=== PATIENT | male | born 1950 | race Caucasian/White ===

== ENCOUNTER → 2017-06-21 | Outpatient (CLI) | payer MEDICARE, OTHER | LOC: PLD 10:34 → LAB SHORT 10:34 | DX: D22.5 Melanocytic nevi of trunk (principal) | CPT/HCPCS: 88305 ==

== ENCOUNTER → 2024-04-19 | Outpatient (CLI) | payer MEDICARE, BC ==
[2024-04-25 21:28] LABS: TESTOSTERONE, FREE BY DIALYSIS 35.2 pg/mL (47.0-244.0)
== END ==
LOC: LAB SHORT 16:00 → LAB 16:00
PROVIDERS: Nurse Practitioner Family
DX: F52.21 Male erectile disorder (principal)
CPT/HCPCS: 84402; 84403

== ENCOUNTER → 2024-12-20 | Outpatient (CLI) | payer MEDICARE, BC | LOC: LAB 15:22 → LAB SHORT 15:22 | DX: E11.69 Type 2 diabetes mellitus with other specified complication (principal); E11.59 Type 2 diabetes mellitus with other circulatory complications; E29.1 Testicular hypofunction | CPT/HCPCS: 83036 ==